=== PATIENT | female | born 1980 | race Two or more races ===

== ENCOUNTER 2020-05-14 09:45 | Inpatient (IN) | payer OTHER ==
[~2020-05-14] VITALS: Ht 157.5 cm; Wt 77.1 kg
[2020-05-14] MEDS ORDERED: LYRICA PO (13:09)
[2020-05-14] MEDS ORDERED: ZETIA10 MG PO (13:10)
[2020-05-19] MEDS ORDERED: LYRICA100 MG (11:41)
[2020-05-21] MEDS ORDERED: FAMOTIDINE20 MG PO (07:23)
[2020-05-21] MEDS ORDERED: SIMETHICONE125 M1 PO (07:23)
[2020-05-21] MEDS ORDERED: IBUPROFEN800 MG PO (07:23)
[2020-05-21] MEDS ORDERED: NEURONTIN600 MG PO (07:23)
== END 2020-05-21 11:14 | disposition home or self-care (01) | DRG 743 ==
LOC: O/R 05-19 05:15 → SURH 05-19 09:45 → OB/GYN 05-19 15:58
PROVIDERS: ADMIT Obstetrics & Gynecology; ATTEND Obstetrics & Gynecology
PROC: 0UB70ZX Excision of Bilateral Fallopian Tubes, Open Approach, Diagnostic (ICD-10-PCS; 2020-05-19)
PROC: 0UT90ZZ Resection of Uterus, Open Approach (ICD-10-PCS; principal; 2020-05-19 11:00)
DX: N80.0 Endometriosis of uterus (principal); D25.1 Intramural leiomyoma of uterus; D25.2 Subserosal leiomyoma of uterus; D64.9 Anemia, unspecified; N72 Inflammatory disease of cervix uteri; N88.8 Other specified noninflammatory disorders of cervix uteri

== ENCOUNTER 2020-06-06 17:19 | Emergency (ER) | payer OTHER ==
[~2020-06-06] VITALS: Ht 157.5 cm; Wt 77.1 kg
[~2020-06-06 17:19] MED LIST: FAMOTIDINE20 MG PO; IBUPROFEN800 MG PO; LYRICA PO; LYRICA100 MG; NEURONTIN600 MG PO; SIMETHICONE125 M1 PO; ZETIA10 MG PO
== END 2020-06-06 22:29 | disposition home or self-care (01) ==
LOC: ER 17:19
DX: R10.2 Pelvic and perineal pain (principal)

== ENCOUNTER 2023-10-30 19:11 | Emergency (ER) | payer OTHER ==
[~2023-10-30] VITALS: Ht 157.5 cm; Wt 68.0 kg
[2023-10-30] MEDS ORDERED: COZAAR50 MG (19:34)
[2023-10-30] MEDS ORDERED: [UNRECOGNIZED DRUG - OTHER] (19:35)
[2023-10-30] MEDS ORDERED: SINGULAIR10 MG (19:35)
[2023-10-30] MEDS ORDERED: PROMETHAZINE HCL 25 MG/ML AMPUL IM ONE (21:15)
[2023-10-30] MEDS ORDERED: MEPERIDINE HCL/PF 50 MG/ML VIAL IM ONE (21:15)
== END 2023-10-30 22:25 | disposition home or self-care (01) ==
LOC: ER 19:12
DX: K64.9 Unspecified hemorrhoids (principal)